=== PATIENT | male | born 1985 | race Caucasian/White ===

== ENCOUNTER 2016-09-11 06:25 | Emergency (ER) | payer OTHER ==
[2016-09-11] MEDS ORDERED: KETOROLAC 30 MG/ML VIAL ONE (06:40)
[2016-09-11] MEDS ORDERED: HYDROmorphone 1 MG/ML SYRINGE ONE (06:40)
[2016-09-11] MEDS ORDERED: ONDANSETRON 4 MG/2 ML VIAL ONE (06:40)
[2016-09-11] MEDS ORDERED: SODIUM CHLORIDE 0.9% 1,000 ML IV ONE (06:41)
[2016-09-11] MEDS ORDERED: FAMOTIDINE 20 MG/50 ML 50 ML IV ONE (08:11)
[2016-09-11] MEDS ORDERED: MAG HYDROX/AL HYDROX/SIMETH 30 ML UDC ONE (08:11)
[2016-09-11] MEDS ORDERED: IOPAMIDOL-300 100 ML VIAL IVP ONE (21:30)
== END 2016-09-11 09:07 | disposition home or self-care (01) ==
DX: R10.12 Left upper quadrant pain (principal); R10.13 Epigastric pain; R11.2 Nausea with vomiting, unspecified
CPT/HCPCS: 36415; 74177; 80053; 81003; 83690; 85025; 96361; 96365; 96375; 99284; A9270; J1170; Q9967